=== PATIENT | female | born 1990 | race American Indian/Alaskan Native ===

== ENCOUNTER 2016-04-25 11:08 | Emergency (ER) | payer SELFPAY ==
[2016-04-25 13:02] VITALS: BP 144/80
[2016-04-25 18:46] LABS: Bilirubin,Urine NEG (Negative); Blood,Urine LG (Negative); Ketones,Urine NEG (Negative); Leukocyte Esterase,Urine TR (Negative); Nitrite,Urine NEG (Negative); Urobilinogen,Urine < 2.0 mg/dL (<2.0)
[2016-04-25 18:47] LABS: RBC,Urine > 182.0 /HPF (0.0-6.0); WBC,Urine > 182.0 /HPF (0.0-6.0)
--- NOTE | 2016-04-25 18:50 | Emergency Department Report ---
<SHRUTHI MACEDO - Last Filed: 04/25/16 21:25> ED Extremity Problem HPI - General Chief complaint: Extremity Injury, Lower Stated complaint: LEGS ARE SWOLLEN/PAIN Time Seen by Provider: 04/25/16 17:40 - Related Data Previous Rx's Medication Instructions Recorded Last Taken Type Furosemide [Lasix] 20 mg PO QDAY #5 tablet 04/25/16 Unknown Rx Ibuprofen [Motrin 800 MG tab] 800 mg PO Q8HR PRN #30 tablet 04/25/16 Unknown Rx Nitrofurantoin [place]/M-Cryst 100 mg PO Q12HR #14 capsule 04/25/16 Unknown Rx [Macrobid CAP] Potassium Chloride [K-Dur] 20 meq PO QDAY #5 tablet 04/25/16 Unknown Rx Allergies Allergy/AdvReac Type Severity Reaction Status Date / Time Penicillins Allergy Rash Verified 04/25/16 12:56 ED Review of Systems ROS: Stated complaint: LEGS ARE SWOLLEN/PAIN Other details as noted in HPI ED Past Medical Hx - Medications Home Medications: Home Medications Medication Instructions Recorded Confirmed Last Taken Type Furosemide [Lasix] 20 mg PO QDAY #5 tablet 04/25/16 Unknown Rx Ibuprofen [Motrin 800 MG tab] 800 mg PO Q8HR PRN #30 tablet 04/25/16 Unknown Rx Nitrofurantoin [place]/M-Cryst 100 mg PO Q12HR #14 capsule 04/25/16 Unknown Rx [Macrobid CAP] Potassium Chloride [K-Dur] 20 meq PO QDAY #5 tablet 04/25/16 Unknown Rx ED Course Vital Signs 04/25/16 13:00 Temperature 97.9 F Pulse Rate 68 Respiratory 18 Rate Blood Pressure 144/80 O2 Sat by Pulse 98 Oximetry - Reevaluation(s) Reevaluation #1: 04/25/16 21:28 Patient had uneventful ED stay. I discussed case with Dr. Xiong and he is in agreement the patient should be discharged home on Lasix and to follow-up with primary care physician. Was discussed the patient and she voiced understanding of follow-up. ED Medical Decision Making - Lab Data Result diagrams: 04/25/16 20:07 04/25/16 18:49 Lab Results 04/25/16 04/25/16 04/25/16 Range/Units 17:30 18:47 18:49 WBC (4.5-11.0) K/mm3 RBC (3.65-5.03) M/mm3 Hgb (10.1-14.3) gm/dl Hct (30.3-42.9) % MCV (79-97) fl MCH (28-32) pg MCHC (30-34) % RDW (13.2-15.2) % Plt Count (140-440) K/mm3 Lymph % (Auto) (13.4-35.0) % Walsh % (Auto) (0.0-7.3) % Eos % (Auto) (0.0-4.3) % Baso % (Auto) (0.0-1.8) % Lymph # (1.2-5.4) K/mm3 Walsh # (0.0-0.8) K/mm3 Eos # (0.0-0.4) K/mm3 Baso # (0.0-0.1) K/mm3 Seg Neutrophils % (40.0-70.0) % Seg Neutrophils # (1.8-7.7) K/mm3 D-Dimer (0-234) ng/mlDDU Sodium 140 (137-145) mmol/L Potassium 4.2 (3.6-5.0) mmol/L Chloride 102.9 (98-107) mmol/L Carbon Dioxide 26 (22-30) mmol/L Anion Gap 15 mmol/L BUN 9 (7-17) mg/dL Creatinine 0.7 (0.7-1.2) mg/dL Estimated GFR > 60 ml/min BUN/Creatinine Ratio 12.85 % Glucose 90 (65-100) mg/dL Calcium 8.6 (8.4-10.2) mg/dL Total Bilirubin 0.2 (0.1-1.2) mg/dL AST 11 (5-40) units/L ALT 16 (7-56) units/L Alkaline Phosphatase 63 (35-129) units/L NT-Pro-B Natriuret Pep (0-450) pg/mL Total Protein 6.0 L (6.3-8.2) g/dL Albumin 3.5 L (3.9-5) g/dL Albumin/Globulin Ratio 1.4 % HCG, Quant < 2 (0-4) mIU/mL Urine Color Red (Yellow) Urine Turbidity Cloudy (Clear) Urine pH 5.0 (5.0-7.0) Ur Specific [place] 1.018 (1.003-1.030) Urine Protein 100 mg/dl (Negative) mg/dL Urine Glucose (UA) Neg (Negative) mg/dL Urine Ketones Neg (Negative) mg/dL Urine Blood Lg (Negative) Urine Nitrite Neg (Negative) Urine Bilirubin Neg (Negative) Urine Urobilinogen < 2.0 (<2.0) mg/dL Ur Leukocyte Esterase Tr (Negative) Urine WBC (Auto) > 182.0 H (0.0-6.0) /HPF Urine RBC (Auto) > 182.0 (0.0-6.0) /HPF U Epithel Cells (Auto) 8.0 (0-13.0) /HPF 04/25/16 04/25/16 04/25/16 Range/Units 19:38 19:38 20:07 WBC 9.6 (4.5-11.0) K/mm3 RBC 4.91 (3.65-5.03) M/mm3 Hgb 12.6 (10.1-14.3) gm/dl Hct 38.5 (30.3-42.9) % MCV 78 L (79-97) fl MCH 26 L (28-32) pg MCHC 33 (30-34) % RDW 14.7 (13.2-15.2) % Plt Count 275 (140-440) K/mm3 Lymph % (Auto) 41.2 H (13.4-35.0) % Walsh % (Auto) 8.0 H (0.0-7.3) % Eos % (Auto) 1.7 (0.0-4.3) % Baso % (Auto) 0.2 (0.0-1.8) % Lymph # 3.9 (1.2-5.4) K/mm3 Walsh # 0.8 (0.0-0.8) K/mm3 Eos # 0.2 (0.0-0.4) K/mm3 Baso # 0.0 (0.0-0.1) K/mm3 Seg Neutrophils % 48.9 (40.0-70.0) % Seg Neutrophils # 4.7 (1.8-7.7) K/mm3 D-Dimer 135.00 (0-234) ng/mlDDU Sodium (137-145) mmol/L Potassium (3.6-5.0) mmol/L Chloride (98-107) mmol/L Carbon Dioxide (22-30) mmol/L Anion Gap mmol/L BUN (7-17) mg/dL Creatinine (0.7-1.2) mg/dL Estimated GFR ml/min BUN/Creatinine Ratio % Glucose (65-100) mg/dL Calcium (8.4-10.2) mg/dL Total Bilirubin (0.1-1.2) mg/dL AST (5-40) units/L ALT (7-56) units/L Alkaline Phosphatase (35-129) units/L NT-Pro-B Natriuret Pep 95.81 (0-450) pg/mL Total Protein (6.3-8.2) g/dL Albumin (3.9-5) g/dL Albumin/Globulin Ratio % HCG, Quant (0-4) mIU/mL Urine Color (Yellow) Urine Turbidity (Clear) Urine pH (5.0-7.0) Ur Specific [place] (1.003-1.030) Urine Protein (Negative) mg/dL Urine Glucose (UA) (Negative) mg/dL Urine Ketones (Negative) mg/dL Urine Blood (Negative) Urine Nitrite (Negative) Urine Bilirubin (Negative) Urine Urobilinogen (<2.0) mg/dL Ur Leukocyte Esterase (Negative) Urine WBC (Auto) (0.0-6.0) /HPF Urine RBC (Auto) (0.0-6.0) /HPF U Epithel Cells (Auto) (0-13.0) /HPF - Radiology Data Radiology results: report reviewed Chest x-ray revealed no acute cardiopulmonary processes Critical care attestation.: If time is entered above; I have spent that time in minutes in the direct care of this critically ill patient, excluding procedure time. ED Disposition Clinical Impression: UTI (urinary tract infection) Qualifiers: Urinary tract infection type: site unspecified Hematuria presence: with hematuria Qualified Code(s): N39.0 - Urinary tract infection, site not specified Edema of lower extremity Qualifiers: Laterality: bilateral Qualified Code(s): R60.0 - Localized edema Disposition: DISCHARGED TO HOME OR SELFCARE Is pt being admited?: No Does the pt Need Aspirin: No Condition: Stable Instructions: Urinary Tract Infection in Women (ED), Leg Edema (ED) Additional Instructions: Take medication as directed. Follow up with the selective referrals given at discharge. Return back to the ED for worsening symptoms or concerns. Lasix as a diuretic so I can make you loose potassium so please take potassium supplements as prescribed. It is better to take lasix in the morning better to take Lasix in the morning You will need to follow-up with her primary care physician for potassium rechecked after completing Lasix Prescriptions: Potassium Chloride [K-Dur] 20 meq PO QDAY #5 tablet Furosemide [Lasix] 20 mg PO QDAY #5 tablet Nitrofurantoin [place]/M-Cryst [Macrobid CAP] 100 mg PO Q12HR #14 capsule Ibuprofen [Motrin 800 MG tab] 800 mg PO Q8HR PRN #30 tablet PRN Reason: Pain Referrals: NIGHAT PEPE CNM [Advanced Practice Nurse] - 3-5 Days JUAN FELDMAN MD [Staff Physician] - 2-3 Days TRACY FERRERA CNM [Advanced Practice Nurse] - 2-3 Days MIGNON MAURER MD [Staff Physician] - 2-3 Days PRIMARY CAREMD [Primary Care Provider] - 2-3 Days Forms: Work/School Release Form(ED) <JAMIE GARCIA - Last Filed: 04/28/16 00:09> ED Extremity Problem HPI - General Source: patient Mode of arrival: Ambulatory Limitations: No Limitations - History of Present Illness Initial comments: Patient reports swelling and tightness to bilateral lower extremities that started 4 days ago. She denies difficulty breathing, chest pain, fever, erythema, recent travel or up to date contraceptive. LMP 04/24/16 Complaint: extremity pain, extremity swelling Onset/Timin -: days(s) Location: bilateral lower extremity History of Same: No -: Yes arthralgia Radiation: proximal Severity scale (0 -10): 5 Quality: aching Consistency: constant Improves with: other (elevating extremities) Worsens with: weight bearing, walking Associated Symptoms: denies other symptoms. denies: chest pain, shortness of breath, fever, myalgias, arthralgias, rash ED Review of Systems Constitutional: denies: chills, diaphoresis, fever, malaise, weakness Respiratory: denies: cough, orthopnea, shortness of breath, SOB with exertion, SOB at rest, stridor, wheezing Cardiovascular: denies: chest pain, palpitations, dyspnea on exertion, orthopnea , edema, syncope, paroxysmal nocturnal dyspnea Gastrointestinal: denies: abdominal pain, nausea, vomiting, diarrhea, constipation Genitourinary: denies: urgency, dysuria, frequency, hematuria, discharge, abnormal menses, dyspareunia Musculoskeletal: myalgia (bilateral LE). denies: back pain, joint swelling, arthralgia Skin: denies: rash, lesions, change in color, change in hair/nails, pruritus Neurological: denies: headache, weakness, numbness, paresthesias, confusion, abnormal gait, vertigo Hematological/Lymphatic: other (swelling to bilateral lower extremities). denies: easy bleeding, easy bruising, swollen glands ED Past Medical Hx - Past Medical History Additional medical history: obesity - Surgical History Additional Surgical History: tonsillectomy - Social History Smoking Status: Light Tobacco Smoker Substance Use Type: Alcohol ED Physical Exam - General Limitations: No Limitations General appearance: alert, in no apparent distress, obese - Head Head exam: Present: atraumatic, normocephalic, normal inspection - ENT ENT exam: Present: normal exam, normal orophraynx, mucous membranes moist. Absent: mucous membranes dry - Neck Neck exam: Present: normal inspection, full ROM. Absent: tenderness, meningismus, lymphadenopathy, thyromegaly - Respiratory Respiratory exam: Present: normal lung sounds bilaterally. Absent: respiratory distress, wheezes, rales, rhonchi, stridor, chest wall tenderness, accessory muscle use, decreased breath sounds, prolonged expiratory - Cardiovascular Cardiovascular Exam: Present: regular rate, normal rhythm, normal heart sounds. Absent: systolic murmur, diastolic murmur, rubs, gallop, clicks, JVD, S3, S4 - GI/Abdominal GI/Abdominal exam: Present: soft, normal bowel sounds. Absent: distended, tenderness, guarding, rebound, rigid - Extremities Exam Extremities exam: Present: normal inspection, full ROM, normal capillary refill , pedal edema (non-pitting bilateral extremities). Absent: tenderness, joint swelling, calf tenderness - Back Exam Back exam: Present: normal inspection, full ROM. Absent: CVA tenderness (R), CVA tenderness (L) - Neurological Exam Neurological exam: Present: alert, oriented X3, CN II-XII intact, normal gait, reflexes normal. Absent: motor sensory deficit - Psychiatric Psychiatric exam: Present: normal affect, normal mood. Absent: depressed, agitated - Skin Skin exam: Present: warm, dry, intact, normal color. Absent: rash ED Course - Reevaluation(s) Reevaluation #1: 04/25/16 18:53 laboratory studies ordered. Reevaluation #2: 04/25/16 19:52 Report to Diallo GODLSMITH ED Medical Decision Making - Lab Data Result diagrams: 04/25/16 20:07 04/25/16 18:49 Vital Signs 04/25/16 13:00 Temperature 97.9 F Pulse Rate 68 Respiratory 18 Rate Blood Pressure 144/80 O2 Sat by Pulse 98 Oximetry Lab Results 04/25/16 04/25/16 04/25/16 Range/Units 17:30 18:47 18:49 Sodium 140 (137-145) mmol/L Potassium 4.2 (3.6-5.0) mmol/L Chloride 102.9 (98-107) mmol/L Carbon Dioxide 26 (22-30) mmol/L Anion Gap 15 mmol/L BUN 9 (7-17) mg/dL Creatinine 0.7 (0.7-1.2) mg/dL Estimated GFR > 60 ml/min BUN/Creatinine Ratio 12.85 % Glucose 90 (65-100) mg/dL Calcium 8.6 (8.4-10.2) mg/dL Total Bilirubin 0.2 (0.1-1.2) mg/dL AST 11 (5-40) units/L ALT 16 (7-56) units/L Alkaline Phosphatase 63 (35-129) units/L Total Protein 6.0 L (6.3-8.2) g/dL Albumin 3.5 L (3.9-5) g/dL Albumin/Globulin Ratio 1.4 % HCG, Quant < 2 (0-4) mIU/mL Urine Color Red (Yellow) Urine Turbidity Cloudy (Clear) Urine pH 5.0 (5.0-7.0) Ur Specific [place] 1.018 (1.003-1.030) Urine Protein 100 mg/dl (Negative) mg/dL Urine Glucose (UA) Neg (Negative) mg/dL Urine Ketones Neg (Negative) mg/dL Urine Blood Lg (Negative) Urine Nitrite Neg (Negative) Urine Bilirubin Neg (Negative) Urine Urobilinogen < 2.0 (<2.0) mg/dL Ur Leukocyte Esterase Tr (Negative) Urine WBC (Auto) > 182.0 H (0.0-6.0) /HPF Urine RBC (Auto) > 182.0 (0.0-6.0) /HPF U Epithel Cells (Auto) 8.0 (0-13.0) /HPF Vital Signs 04/25/16 13:00 Temperature 97.9 F Pulse Rate 68 Respiratory 18 Rate Blood Pressure 144/80 O2 Sat by Pulse 98 Oximetry Lab Results 04/25/16 04/25/16 04/25/16 Range/Units 17:30 18:47 18:49 WBC (4.5-11.0) K/mm3 RBC (3.65-5.03) M/mm3 Hgb (10.1-14.3) gm/dl Hct (30.3-42.9) % MCV (79-97) fl MCH (28-32) pg MCHC (30-34) % RDW (13.2-15.2) % Plt Count (140-440) K/mm3 Lymph % (Auto) (13.4-35.0) % Walsh % (Auto) (0.0-7.3) % Eos % (Auto) (0.0-4.3) % Baso % (Auto) (0.0-1.8) % Lymph # (1.2-5.4) K/mm3 Walsh # (0.0-0.8) K/mm3 Eos # (0.0-0.4) K/mm3 Baso # (0.0-0.1) K/mm3 Seg Neutrophils % (40.0-70.0) % Seg Neutrophils # (1.8-7.7) K/mm3 D-Dimer (0-234) ng/mlDDU Sodium 140 (137-145) mmol/L Potassium 4.2 (3.6-5.0) mmol/L Chloride 102.9 (98-107) mmol/L Carbon Dioxide 26 (22-30) mmol/L Anion Gap 15 mmol/L BUN 9 (7-17) mg/dL Creatinine 0.7 (0.7-1.2) mg/dL Estimated GFR > 60 ml/min BUN/Creatinine Ratio 12.85 % Glucose 90 (65-100) mg/dL Calcium 8.6 (8.4-10.2) mg/dL Total Bilirubin 0.2 (0.1-1.2) mg/dL AST 11 (5-40) units/L ALT 16 (7-56) units/L Alkaline Phosphatase 63 (35-129) units/L NT-Pro-B Natriuret Pep (0-450) pg/mL Total Protein 6.0 L (6.3-8.2) g/dL Albumin 3.5 L (3.9-5) g/dL Albumin/Globulin Ratio 1.4 % HCG, Quant < 2 (0-4) mIU/mL Urine Color Red (Yellow) Urine Turbidity Cloudy (Clear) Urine pH 5.0 (5.0-7.0) Ur Specific [place] 1.018 (1.003-1.030) Urine Protein 100 mg/dl (Negative) mg/dL Urine Glucose (UA) Neg (Negative) mg/dL Urine Ketones Neg (Negative) mg/dL Urine Blood Lg (Negative) Urine Nitrite Neg (Negative) Urine Bilirubin Neg (Negative) Urine Urobilinogen < 2.0 (<2.0) mg/dL Ur Leukocyte Esterase Tr (Negative) Urine WBC (Auto) > 182.0 H (0.0-6.0) /HPF Urine RBC (Auto) > 182.0 (0.0-6.0) /HPF U Epithel Cells (Auto) 8.0 (0-13.0) /HPF 04/25/16 04/25/16 04/25/16 Range/Units 19:38 19:38 20:07 WBC 9.6 (4.5-11.0) K/mm3 RBC 4.91 (3.65-5.03) M/mm3 Hgb 12.6 (10.1-14.3) gm/dl Hct 38.5 (30.3-42.9) % MCV 78 L (79-97) fl MCH 26 L (28-32) pg MCHC 33 (30-34) % RDW 14.7 (13.2-15.2) % Plt Count 275 (140-440) K/mm3 Lymph % (Auto) 41.2 H (13.4-35.0) % Walsh % (Auto) 8.0 H (0.0-7.3) % Eos % (Auto) 1.7 (0.0-4.3) % Baso % (Auto) 0.2 (0.0-1.8) % Lymph # 3.9 (1.2-5.4) K/mm3 Walsh # 0.8 (0.0-0.8) K/mm3 Eos # 0.2 (0.0-0.4) K/mm3 Baso # 0.0 (0.0-0.1) K/mm3 Seg Neutrophils % 48.9 (40.0-70.0) % Seg Neutrophils # 4.7 (1.8-7.7) K/mm3 D-Dimer 135.00 (0-234) ng/mlDDU Sodium (137-145) mmol/L Potassium (3.6-5.0) mmol/L Chloride (98-107) mmol/L Carbon Dioxide (22-30) mmol/L Anion Gap mmol/L BUN (7-17) mg/dL Creatinine (0.7-1.2) mg/dL Estimated GFR ml/min BUN/Creatinine Ratio % Glucose (65-100) mg/dL Calcium (8.4-10.2) mg/dL Total Bilirubin (0.1-1.2) mg/dL AST (5-40) units/L ALT (7-56) units/L Alkaline Phosphatase (35-129) units/L NT-Pro-B Natriuret Pep 95.81 (0-450) pg/mL Total Protein (6.3-8.2) g/dL Albumin (3.9-5) g/dL Albumin/Globulin Ratio % HCG, Quant (0-4) mIU/mL Urine Color (Yellow) Urine Turbidity (Clear) Urine pH (5.0-7.0) Ur Specific [place] (1.003-1.030) Urine Protein (Negative) mg/dL Urine Glucose (UA) (Negative) mg/dL Urine Ketones (Negative) mg/dL Urine Blood (Negative) Urine Nitrite (Negative) Urine Bilirubin (Negative) Urine Urobilinogen (<2.0) mg/dL Ur Leukocyte Esterase (Negative) Urine WBC (Auto) (0.0-6.0) /HPF Urine RBC (Auto) (0.0-6.0) /HPF U Epithel Cells (Auto) (0-13.0) /HPF - Radiology Data Radiology results: image reviewed EXAM: XR CHEST ROUTINE 2V HISTORY: SOB COMPARISON: None available. FINDINGS:: Frontal and lateral views of the chest obtained. Cardiac silhouette is within normal limits. No focal consolidation or effusion. No pneumothorax. Visualized bony thorax is grossly intact. IMPRESSION:: No acute findings. - Medical Decision Making During the course of ED, laboratory and radiology studies were ordered. The imaging revealed no acute findings. Patient was sent home with prescriptions for Ibuprofen, Macrobid, Potassium and Lasix, instructed to follow up with the selective referrals given at discharge, she verbalized understanding - Differential Diagnosis UTI, Bilateral Lower Extremities Swelling, CHF, DVT, ARF ED Disposition Is pt being admited?: No Does the pt Need Aspirin: No
[2016-04-25 19:23] LABS: Alanine Aminotransferase 16 units/L (7-56); Albumin 3.5 g/dL (3.9-5); Albumin/Globulin Ratio 1.4 %; Alkaline Phosphatase 63 units/L (35-129); BUN/Creatinine Ratio 12.85; Bilirubin,Total 0.2 mg/dL (0.1-1.2); Blood Urea Nitrogen 9 mg/dL (7-17); Calcium 8.6 mg/dL (8.4-10.2); Carbon Dioxide 26 mmol/L (22-30); Chloride 102.9 mmol/L (98-107); Glucose 90 mg/dL (65-100); Potassium 4.2 mmol/L (3.6-5.0); Sodium 140 mmol/L (137-145)
[2016-04-25 19:37] LABS: Anion Gap 15 mmol/L
--- NOTE | 2016-04-25 20:02 | XRay Report ---
FINAL REPORT EXAM: XR CHEST ROUTINE 2V HISTORY: SOB COMPARISON: None available. FINDINGS:: Frontal and lateral views of the chest obtained. Cardiac silhouette is within normal limits. No focal consolidation or effusion. No pneumothorax. Visualized bony thorax is grossly intact. IMPRESSION:: No acute findings.
[2016-04-25 20:27] LABS: Basophils % (Auto) 0.2 % (0.0-1.8); Eosinophils % (Auto) 1.7 % (0.0-4.3); Hematocrit 38.5 % (30.3-42.9); Hemoglobin 12.6 gm/dl (10.1-14.3); Mean Corpuscular HGB Conc 33 % (30-34); Mean Corpuscular Volume 78 fl (79-97); Platelet Count 275 K/mm3 (140-440); Red Blood Count 4.91 M/mm3 (3.65-5.03); Red Cell Distribution Width 14.7 % (13.2-15.2); White Blood Count 9.6 K/mm3 (4.5-11.0)
[2016-04-25 20:32] LABS: Mean Corpuscular Hemoglobin 26 pg (28-32)
== END 2016-04-25 21:45 | disposition home or self-care (01) ==
LOC: ED 11:08
DX: N39.0 Urinary tract infection, site not specified (principal); R60.0 Localized edema; Z88.0 Allergy status to penicillin
CPT/HCPCS: 36415; 71020; 80053; 81001; 83880; 84702; 85025; 85379

== ENCOUNTER 2016-12-16 13:35 | Emergency (ER) | payer SELFPAY ==
[2016-12-16 14:25] VITALS: BP 136/94
--- NOTE | 2016-12-16 16:11 | Emergency Department Report ---
ED General Adult HPI - General Chief complaint: Medical Clearance Stated complaint: BUMPS ON TONGUE Time Seen by Provider: 12/16/16 16:04 Source: patient Mode of arrival: Ambulatory Limitations: No Limitations - History of Present Illness Initial comments: pt is a 26 y/o aaf with seasonal allergies who presents for tongue lesions 2 days no fever no chills no throat pain no dysphargia no stridor no swelling, pt adises I just wand to get it checked out , pt endoress using halls and flonase for paste weak for allergies. Onset/Timin -: days(s) Location: mouth Severity scale (0 -10): 2 Quality: other (no pain no itching no swelling ) Consistency: constant Improves with: none Worsens with: none Associated Symptoms: denies: confusion, chest pain, cough, diaphoresis, fever/ chills, headaches, loss of appetite, malaise, nausea/vomiting, rash, shortness of breath, syncope, weakness Treatments Prior to Arrival: none - Related Data Previous Rx's Medication Instructions Recorded Last Taken Type Furosemide [Lasix] 20 mg PO QDAY #5 tablet 04/25/16 Unknown Rx Ibuprofen [Motrin 800 MG tab] 800 mg PO Q8HR PRN #30 tablet 04/25/16 Unknown Rx Nitrofurantoin [place]/M-Cryst 100 mg PO Q12HR #14 capsule 04/25/16 Unknown Rx [Macrobid CAP] Potassium Chloride [K-Dur] 20 meq PO QDAY #5 tablet 04/25/16 Unknown Rx Cetirizine HCl [ZyrTEC] 10 mg PO DAILY #30 tab.chew 12/16/16 Unknown Rx Oxymetazoline 0.05% [Afrin] 1 spray NS 2XWHS #1 bottle 12/16/16 Unknown Rx Allergies Allergy/AdvReac Type Severity Reaction Status Date / Time Penicillins Allergy Rash Verified 04/25/16 12:56 ED Review of Systems ROS: Stated complaint: BUMPS ON TONGUE Other details as noted in HPI Constitutional: no symptoms reported. denies: chills, fever, malaise Eyes: denies: eye pain, eye discharge, vision change ENT: other (tongue lesion). denies: ear pain, throat pain, dental pain, hearing loss, epistaxis, congestion Respiratory: denies: cough, shortness of breath, wheezing Cardiovascular: denies: chest pain, palpitations Endocrine: no symptoms reported Gastrointestinal: denies: abdominal pain, nausea, diarrhea Genitourinary: denies: urgency, dysuria, discharge Musculoskeletal: denies: back pain, joint swelling, arthralgia Skin: denies: rash, lesions Neurological: denies: headache, weakness, paresthesias Psychiatric: denies: anxiety, depression Hematological/Lymphatic: denies: easy bleeding, easy bruising ED Past Medical Hx - Past Medical History Additional medical history: obesity - Surgical History Additional Surgical History: tonsillectomy - Social History Smoking Status: Light Tobacco Smoker Substance Use Type: Alcohol - Medications Home Medications: Home Medications Medication Instructions Recorded Confirmed Last Taken Type Furosemide [Lasix] 20 mg PO QDAY #5 tablet 04/25/16 Unknown Rx Ibuprofen [Motrin 800 MG tab] 800 mg PO Q8HR PRN #30 tablet 04/25/16 Unknown Rx Nitrofurantoin [place]/M-Cryst 100 mg PO Q12HR #14 capsule 04/25/16 Unknown Rx [Macrobid CAP] Potassium Chloride [K-Dur] 20 meq PO QDAY #5 tablet 04/25/16 Unknown Rx Cetirizine HCl [ZyrTEC] 10 mg PO DAILY #30 tab.chew 12/16/16 Unknown Rx Oxymetazoline 0.05% [Afrin] 1 spray NS 2XWHS #1 bottle 12/16/16 Unknown Rx ED Physical Exam - General Limitations: No Limitations General appearance: alert, in no apparent distress - Head Head exam: Present: atraumatic, normocephalic - Eye Eye exam: Present: normal appearance - ENT ENT exam: Present: mucous membranes moist, TM's normal bilaterally, normal external ear exam - Expanded ENT Exam Expanded Mouth exam: Absent: drooling, trismus, muffled voice, tongue normal (mild posterior lesions red nonpainful no exutdate no swelling ), tongue elevation, laceration Teeth exam: Present: normal inspection - Neck Neck exam: Present: normal inspection, full ROM. Absent: tenderness, lymphadenopathy, thyromegaly - Respiratory Respiratory exam: Present: normal lung sounds bilaterally. Absent: respiratory distress, wheezes, rales, rhonchi, stridor, chest wall tenderness, accessory muscle use, decreased breath sounds, prolonged expiratory - Cardiovascular Cardiovascular Exam: Present: regular rate, normal rhythm. Absent: systolic murmur, diastolic murmur, rubs, gallop - GI/Abdominal GI/Abdominal exam: Present: soft - Rectal Rectal exam: Present: deferred - Extremities Exam Extremities exam: Present: normal inspection - Back Exam Back exam: Present: normal inspection - Neurological Exam Neurological exam: Present: alert - Psychiatric Psychiatric exam: Present: normal affect, normal mood - Skin Skin exam: Present: warm, dry, intact, normal color. Absent: rash ED Course Vital Signs 12/16/16 14:23 Temperature 98.4 F Pulse Rate 80 Respiratory 16 Rate Blood Pressure 136/94 O2 Sat by Pulse 100 Oximetry ED Medical Decision Making - Medical Decision Making pt is a 26 y/o aaf with seasonal allergies who presents for tongue lesions 2 days no fever no chills no throat pain no dysphargia no stridor no swelling, pt adises I just wand to get it checked out , pt endoress using halls and flonase for paste weak for allergies. exam: Tms clear bilat no erythema no pain . nose: mild turbinate erythema no polyps no obstruction clear post nasal drip, phayrnx : no erythema no edema no exudate noted lesions small posterior tongue uvula midline no swelling, pt denies pain fever no chills no sob no dysphagia pt is tolerating po intake without pain. plan. afrinx 3 days , zrtec po daily, follow up with primary care doctor pt verbalized agreement and understanding of discharge plan. Critical care attestation.: If time is entered above; I have spent that time in minutes in the direct care of this critically ill patient, excluding procedure time. ED Disposition Clinical Impression: Allergic rhinitis Qualifiers: Chronicity: acute Allergic rhinitis trigger: unspecified Allergic rhinitis seasonality: non-seasonal Qualified Code(s): J30.89 - Other allergic rhinitis Disposition: - TO HOME OR SELFCARE Is pt being admited?: No Does the pt Need Aspirin: No Condition: Good Instructions: Allergic Rhinitis (ED) Prescriptions: Cetirizine HCl [ZyrTEC] 10 mg PO DAILY #30 tab.chew Oxymetazoline 0.05% [Afrin] 1 spray NS 2XWHS #1 bottle Referrals: PRIMARY CARE, [Primary Care Provider] - 3-5 Days Forms: Work/School Release Form(ED) Time of Disposition: 16:23
== END 2016-12-16 16:47 | disposition home or self-care (01) ==
LOC: ED 13:35
DX: J30.89 Other allergic rhinitis (principal); F17.200 Nicotine dependence, unspecified, uncomplicated
CPT/HCPCS: 99282

== ENCOUNTER 2017-07-04 13:30 | Emergency (ER) | payer SELFPAY ==
[2017-07-04 13:59] VITALS: BP 149/91
[2017-07-04] MEDS ORDERED: ROCEPHIN IM ONE (17:46)
[2017-07-04] MEDS ORDERED: MOTRIN PO ONE (17:46)
[2017-07-04] MEDS ORDERED: XYLOCAINE 1% MPF 5 mL INFILTRATI ONE (17:46)
[2017-07-04] MEDS ORDERED: ZITHROMAX PO ONE (17:46)
[2017-07-04] MEDS ORDERED: FLAGYL PO ONE (17:46)
[2017-07-04 18:19] LABS: Bilirubin,Urine NEG (Negative); Blood,Urine SM (Negative); Color,Urine Yellow (Yellow); Mucus,Urine FEW /HPF; Urobilinogen,Urine < 2.0 mg/dL (<2.0)
[2017-07-04 18:30] LABS: HCG Qualitative,Urine Negative (Negative)
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
--- NOTE | 2017-07-04 18:48 | Emergency Department Report ---
Chief Complaint: Urogenital-Female Stated Complaint: VAG PAIN EXTREME Time Seen by Provider: 07/04/17 17:26 - HPI History of Present Illness: The patient's 26 yo female presents for evaluation of vaginal and rectal pain. The patient reports irritation and burning quality pain to genital and rectal region the past 4-5 days. She admits to sexual intercourse within the past 3 months. The patient denies fever, chills, night sweats, diarrhea, blood in the stool, dark tarry stool, dysuria, hematuria, flank pain, genital discharge, inability to pass flatus. - Exam Vital Signs: Vital Signs 07/04/17 13:56 Temperature 98 F Pulse Rate 74 Respiratory 18 Rate Blood Pressure 149/91 O2 Sat by Pulse 100 Oximetry MSE screening note: Focused history and physical exam performed. Due to findings the following was ordered: ED Disposition for MSE Condition: Stable Referrals: PRIMARY CARE, [Primary Care Provider] - 3-5 Days
== END 2017-07-04 19:20 | disposition home or self-care (01) ==
LOC: ED 13:30
DX: N72 Inflammatory disease of cervix uteri (principal); Z90.89 Acquired absence of other organs; Z88.0 Allergy status to penicillin
CPT/HCPCS: 81001; 81025; 87210; 87591; 96372; 99283; J0696

== ENCOUNTER 2017-08-26 14:54 | Emergency (ER) | payer SELFPAY ==
[2017-08-26 15:33] VITALS: BP 126/82
--- NOTE | 2017-08-26 17:24 | Emergency Department Report ---
- General Chief complaint: Skin Rash Stated complaint: INSECT BITE Time Seen by Provider: 08/26/17 17:18 Source: patient Mode of arrival: Ambulatory Limitations: No Limitations - History of Present Illness Initial comments: Patient is a 27-year-old asthmatic female who is presenting with a left upper arm area of redness. Patient still thinks something may have bitten her she had a low local reaction initially that is now spread to this softball. Patient states is now itching and pain present. Patient denies fevers chills nausea vomiting diarrhea at this time. - Related Data Previous Rx's Medication Instructions Recorded Last Taken Type Furosemide [Lasix] 20 mg PO QDAY #5 tablet 04/25/16 Unknown Rx Ibuprofen [Motrin 800 MG tab] 800 mg PO Q8HR PRN #30 tablet 04/25/16 Unknown Rx Nitrofurantoin [place]/M-Cryst 100 mg PO Q12HR #14 capsule 04/25/16 Unknown Rx [Macrobid CAP] Potassium Chloride [K-Dur] 20 meq PO QDAY #5 tablet 04/25/16 Unknown Rx Cetirizine HCl [ZyrTEC] 10 mg PO DAILY #30 tab.chew 12/16/16 Unknown Rx Oxymetazoline 0.05% [Afrin] 1 spray NS 2XWHS #1 bottle 12/16/16 Unknown Rx Ibuprofen [Motrin] 800 mg PO Q8HR PRN #20 tablet 07/04/17 Unknown Rx Sulfamethoxazole/Trimethoprim 1 each PO BID #6 tablet 07/07/17 Unknown Rx [Bactrim DS TAB] Clindamycin [Clindamycin CAP] 300 mg PO Q8H 7 Days cap 08/26/17 Unknown Rx HYDROcodone/APAP 5-325 [[place] 1 each PO Q4HR PRN #12 tablet 08/26/17 Unknown Rx 5/325] Ibuprofen [Motrin] 800 mg PO Q8HR PRN #20 tablet 08/26/17 Unknown Rx Allergies Allergy/AdvReac Type Severity Reaction Status Date / Time Penicillins Allergy Rash Verified 04/25/16 12:56 Abscess Boil HPI - HPI Chief Complaint: Skin Rash Stated Complaint: INSECT BITE Time Seen by Provider: 08/26/17 17:18 Home Medications: Previous Rx's Medication Instructions Recorded Last Taken Type Furosemide [Lasix] 20 mg PO QDAY #5 tablet 01/15/17 Unknown Rx Ibuprofen [Motrin 800 MG tab] 800 mg PO Q8HR PRN #30 tablet 04/25/16 Unknown Rx Nitrofurantoin [place]/M-Cryst 100 mg PO Q12HR #14 capsule 04/25/16 Unknown Rx [Macrobid CAP] Potassium Chloride [K-Dur] 20 meq PO QDAY #5 tablet 04/25/16 Unknown Rx Cetirizine HCl [ZyrTEC] 10 mg PO DAILY #30 tab.chew 12/16/16 Unknown Rx Oxymetazoline 0.05% [Afrin] 1 spray NS 2XWHS #1 bottle 12/16/16 Unknown Rx Ibuprofen [Motrin] 800 mg PO Q8HR PRN #20 tablet 07/04/17 Unknown Rx Sulfamethoxazole/Trimethoprim 1 each PO BID #6 tablet 07/07/17 Unknown Rx [Bactrim DS TAB] Clindamycin [Clindamycin CAP] 300 mg PO Q8H 7 Days cap 08/26/17 Unknown Rx HYDROcodone/APAP 5-325 [[place] 1 each PO Q4HR PRN #12 tablet 08/26/17 Unknown Rx 5/325] Ibuprofen [Motrin] 800 mg PO Q8HR PRN #20 tablet 08/26/17 Unknown Rx Allergies/Adverse Reactions: Allergies Allergy/AdvReac Type Severity Reaction Status Date / Time Penicillins Allergy Rash Verified 04/25/16 12:56 ED Review of Systems ROS: Stated complaint: INSECT BITE Other details as noted in HPI Comment: All other systems reviewed and negative ED Past Medical Hx - Past Medical History Previous Medical History?: No Additional medical history: obesity - Surgical History Past Surgical History?: Yes Additional Surgical History: tonsillectomy - Social History Smoking Status: Unknown if ever smoked Substance Use Type: Alcohol, Marijuana - Medications Home Medications: Home Medications Medication Instructions Recorded Confirmed Last Taken Type Furosemide [Lasix] 20 mg PO QDAY #5 tablet 04/25/16 Unknown Rx Ibuprofen [Motrin 800 MG tab] 800 mg PO Q8HR PRN #30 tablet 04/25/16 Unknown Rx Nitrofurantoin [place]/M-Cryst 100 mg PO Q12HR #14 capsule 04/25/16 Unknown Rx [Macrobid CAP] Potassium Chloride [K-Dur] 20 meq PO QDAY #5 tablet 04/25/16 Unknown Rx Cetirizine HCl [ZyrTEC] 10 mg PO DAILY #30 tab.chew 12/16/16 Unknown Rx Oxymetazoline 0.05% [Afrin] 1 spray NS 2XWHS #1 bottle 12/16/16 Unknown Rx Ibuprofen [Motrin] 800 mg PO Q8HR PRN #20 tablet 07/04/17 Unknown Rx Sulfamethoxazole/Trimethoprim 1 each PO BID #6 tablet 07/07/17 Unknown Rx [Bactrim DS TAB] Clindamycin [Clindamycin CAP] 300 mg PO Q8H 7 Days cap 08/26/17 Unknown Rx HYDROcodone/APAP 5-325 [[place] 1 each PO Q4HR PRN #12 tablet 08/26/17 Unknown Rx 5/325] Ibuprofen [Motrin] 800 mg PO Q8HR PRN #20 tablet 08/26/17 Unknown Rx ED Physical Exam - General Limitations: No Limitations General appearance: alert, in no apparent distress - Head Head exam: Present: atraumatic, normocephalic - Eye Eye exam: Present: normal appearance - ENT ENT exam: Present: mucous membranes moist - Neck Neck exam: Present: normal inspection - Respiratory Respiratory exam: Present: normal lung sounds bilaterally. Absent: respiratory distress - Cardiovascular Cardiovascular Exam: Present: regular rate, normal rhythm. Absent: systolic murmur, diastolic murmur, rubs, gallop - GI/Abdominal GI/Abdominal exam: Present: soft, normal bowel sounds - Extremities Exam Extremities exam: Present: normal inspection, tenderness, other (patient's left upper extremity just proximal to the elbow has a softball size area of redness mild warmth and mild induration. There are no areas of fluctuance in this area. ) - Back Exam Back exam: Present: normal inspection - Neurological Exam Neurological exam: Present: alert, oriented X3 - Psychiatric Psychiatric exam: Present: normal affect, normal mood - Skin Skin exam: Present: warm, dry, intact, normal color. Absent: rash ED Course Vital Signs 08/26/17 15:28 Temperature 98 F Pulse Rate 65 Respiratory 18 Rate Blood Pressure 126/82 O2 Sat by Pulse 96 Oximetry ED Medical Decision Making - Medical Decision Making She'll be started on antibiotics and will be discharged home with meds for symptomatic relief. Critical care attestation.: If time is entered above; I have spent that time in minutes in the direct care of this critically ill patient, excluding procedure time. ED Disposition Clinical Impression: Infected insect bite Qualifiers: Encounter type: initial encounter Qualified Code(s): W57.XXXA - Bitten or stung by nonvenomous insect and other nonvenomous arthropods, initial encounter Disposition: TO HOME OR SELFCARE Is pt being admited?: No Does the pt Need Aspirin: No Condition: Stable Instructions: Cellulitis (ED) Additional Instructions: Please take Benadryl 25 mg by mouth every 4-6 hours for itching Referrals: PRIMARY CARE, [Primary Care Provider] - 3-5 Days
== END 2017-08-26 17:30 | disposition home or self-care (01) ==
LOC: ED 14:54
DX: S40.862A Insect bite (nonvenomous) of left upper arm, initial encounter (principal); F12.10 Cannabis abuse, uncomplicated; Z88.0 Allergy status to penicillin; W57.XXXA Bitten or stung by nonvenomous insect and other nonvenomous arthropods, initial encounter; Y93.89 Activity, other specified; Y92.89 Other specified places as the place of occurrence of the external cause; Y99.8 Other external cause status
CPT/HCPCS: 99281